=== PATIENT | female | born 1965 | race Caucasian/White ===

== ENCOUNTER 2018-09-02 12:36 | Day surgery (SDC) | payer BC ==
[~2018-09-02] VITALS: Ht 167.6 cm; Wt 108.7 kg
[~2018-09-02 12:36] MED LIST: ATEN25TA PO; LISI-170 PO
[2018-09-02] MEDS ORDERED: LACTATED RINGERS 1,000 ML IV SCH (12:47)
[2018-09-02] MEDS ORDERED: ONDANSETRON 2MG/ML, 2ML IVPush ONE (13:30)
[2018-09-02 13:36] LABS: ANION GAP 6 mmol/L (5-15); CALCIUM 8.9 mg/dL (8.5-10.1); CHLORIDE 108 mmol/L (98-107)
[2018-09-02 13:40] LABS: ALANINE AMINOTRANSFERASE 40 U/L (12-78); ALKALINE PHOSPHATASE 107 U/L (45-117); BILIRUBIN,TOTAL 1.1 mg/dL (0.2-1.0); CREATININE 0.61 mg/dL (0.55-1.02); TOTAL PROTEIN 7.8 g/dL (6.4-8.2)
[2018-09-02] MEDS ORDERED: FENTANYL PF 250 MCG/5ML ONE (15:23)
[2018-09-02] MEDS ORDERED: MIDAZOLAM 1 MG/ML, 2ML ONE (15:23)
[2018-09-02] MEDS ORDERED: PROPOFOL 100 ML ONE (15:26)
[2018-09-02] MEDS ORDERED: ROCURONIUM 10 MG/ML,10ML ONE (15:28)
[2018-09-02] MEDS ORDERED: ONDANSETRON ODT 8 MG PO PRN (16:00)
[2018-09-02] MEDS ORDERED: HYDROmorphone 2 MG/ML, 1ML IVPush PRN (16:00)
[2018-09-02] MEDS ORDERED: LORazepam 2 MG/ML, 1ML IVPush PRN (16:00)
[2018-09-02] MEDS ORDERED: OXYcodone 5 MG/5 ML ORAL.SOL UDC PO PRN (16:00)
[2018-09-02] MEDS ORDERED: DIAZEPAM 5 MG/ML, 2ML IVPush PRN (16:00)
[2018-09-02] MEDS ORDERED: ACETAMINOPHEN 325 MG TABLET PO PRN (16:00)
[2018-09-02] MEDS ORDERED: ONDANSETRON 2MG/ML, 2ML IV PRN ×2 (16:00→19:30)
[2018-09-02] MEDS ORDERED: FENTANYL PF 100 MCG/2ML IV PRN (16:00)
[2018-09-02] MEDS ORDERED: PROMETHAZINE 25 MG/ML, 1ML IV PRN (16:00)
[2018-09-02] MEDS ORDERED: OMNIPAQUE 350 MG/ML, 50 ML BOTTLE IV ONE (16:17)
[2018-09-02] MEDS ORDERED: ONDANSETRON 2MG/ML, 2ML ONE (16:52)
[2018-09-02] MEDS ORDERED: DEXAMETHASONE 4 MG/ML, 1ML ONE (16:52)
[2018-09-02] MEDS ORDERED: CEFAZOLIN 1,000 MG ONE (16:52)
[2018-09-02] MEDS ORDERED: PROPOFOL 10 MG/ML, 20ML ONE (16:52)
[2018-09-02] MEDS ORDERED: LABETALOL 5MG/ML, 20ML IV PRN (17:30)
[2018-09-02] MEDS ORDERED: hydrALAzine 20 MG/ML, 1ML ONE (17:35)
[2018-09-02] MEDS ORDERED: ACETAMINOPHEN 650 MG/20.3 ML UDC ONE (17:35)
[2018-09-02] MEDS: hydrALAzine 20 MG/ML, 1ML IV PRN ×2 (17:37→18:09)
[2018-09-02] MEDS ORDERED: LABETALOL 5 MG/ML SYRINGE IV PRN (17:51)
[2018-09-02] MEDS ORDERED: OXYcodone 5 MG/5 ML ORAL.SOL UDC ONE (18:16)
[2018-09-02] MEDS ORDERED: FENTANYL PF 100 MCG/2ML ONE (18:16)
[2018-09-02] MEDS ORDERED: MORPHINE SULFATE 4 MG/ML, 1ML IV PRN (19:30)
[2018-09-02 20:00] VITALS: BP 144/82
== END 2018-09-02 20:55 | disposition home or self-care (01) ==
LOC: OUT 12:36 → 4NOR 18:49 → OUT 20:55
PROVIDERS: ATTEND Urology
DX: N20.2 Calculus of kidney with calculus of ureter (principal); I10 Essential (primary) hypertension; Z88.5 Allergy status to narcotic agent; Z88.8 Allergy status to other drugs, medicaments and biological substances
CPT/HCPCS: 36415; 52356; 74420; 80053; C1726; C1758; C1769; C2617; J0360; J0690; J1100; J2250; J2405; J2704; J3010; J7120; Q9967; G0378

== ENCOUNTER 2018-09-04 17:43 | Emergency (ER) | payer BC ==
[~2018-09-04] VITALS: Ht 167.6 cm; Wt 109.9 kg
[2018-09-04 18:14] LABS: BASOPHILS # (AUTO) 0.02 x10^3/uL (0-0.1); BASOPHILS % (AUTO) 0 % (0-1); EOSINOPHILS # (AUTO) 0.13 x10^3/uL (0-0.4); EOSINOPHILS % (AUTO) 2 % (1-7); LYMPHOCYTES # (AUTO) 2.56 x10^3/uL (1-3.4); LYMPHOCYTES % (AUTO) 30 % (22-44); MD NO; MEAN CORPUSCULAR HEMOGLOBIN 29.5 pg (27.0-34.8); MEAN CORPUSCULAR HGB CONC 33.9 g/dL (32.4-35.8); MEAN CORPUSCULAR VOLUME 87.1 fL (80-100); MEAN PLATELET VOLUME 8.2 fL (7.4-10.4); MONOCYTES # (AUTO) 0.52 x10^3/uL (0.2-0.8); MONOCYTES % (AUTO) 6 % (2-9); NEUTROPHILS # (AUTO) 5.43 x10^3/uL (1.8-6.8); NEUTROPHILS % (AUTO) 63 % (42-75); PLATELET COUNT 270 x10^3/uL (130-400); RED BLOOD COUNT 4.72 x10^6/uL (3.82-5.3); RED CELL DISTRIBUTION WIDTH 13.7 % (9.6-15.2)
[2018-09-04] MEDS ORDERED: KETOROLAC 30 MG/1 ML ONE (18:14)
[2018-09-04] MEDS ORDERED: ONDANSETRON ODT 4 MG ONE (18:14)
[2018-09-04 18:24] LABS: ALBUMIN 4.2 g/dL (3.4-5.0); ANION GAP 5 mmol/L (5-15); CALCIUM 8.7 mg/dL (8.5-10.1); CHLORIDE 109 mmol/L (98-107)
[2018-09-04 18:28] LABS: ALANINE AMINOTRANSFERASE 34 U/L (12-78); ALKALINE PHOSPHATASE 113 U/L (45-117); BILIRUBIN,TOTAL 0.6 mg/dL (0.2-1.0); CREATININE 0.86 mg/dL (0.55-1.02); TOTAL PROTEIN 7.9 g/dL (6.4-8.2)
--- NOTE | 2018-09-04 18:28 | NUR ---
Patient to XR. Pt states she had a procedure earlier today to remove kidney stones and presents to the ED with c/o severe right flank pain
[2018-09-04 18:29] LABS: MICROSCOPIC INDICATED
[2018-09-04] MEDS ORDERED: ONDANSETRON ODT 4 MG PO ONE (18:30)
[2018-09-04] MEDS ORDERED: KETOROLAC 60 MG/2 ML IM ONE (18:30)
[2018-09-04 18:51] LABS: CULTURE INDICATED? YES
[2018-09-04] MEDS ORDERED: HYDROmorphone 1 MG/ML, 1ML INJ IM ONE (19:00)
[2018-09-04] MEDS ORDERED: HYDROmorphone 1 MG/ML, 1ML VIAL ONE (19:01)
--- NOTE | 2018-09-04 19:15 | NUR ---
REPORT RECEIVED FROM JIM GALLEGO AT BEDSIDE. PT A&O, RESPS EVEN AND UNLABORED. EDMD AWARE OF ELEVATED BP, AWAITING EFFECTS OF DILAUID AND BP RECHECK AT THIS TIME. BP AND SPO2 MONITORS IN PLACE .
--- NOTE | 2018-09-04 19:16 | NUR ---
REPORT GIVEN TO JIM COOPER.
--- NOTE | 2018-09-04 19:45 | NUR ---
PT REPORTS PAIN LEVEL NOW TOLERABLE AT 5/10. PT A&O, RESPS EVEN AND UNLABORED. NADN.
--- NOTE | 2018-09-04 19:56 | NUR ---
EMILIE MONDRAGON AT BEDSIDE FOR REASSESSMENT.
[2018-09-04] MEDS ORDERED: HYDROcodone/APAP 5/325 TABLET PO ONE (20:00)
[2018-09-04] MEDS ORDERED: HYDROcodone/APAP 5/325 TABLET ONE (20:17)
[2018-09-04 20:22] VITALS: BP 171/79
--- NOTE | 2018-09-04 20:37 | NUR ---
PT A&O, RESPS EVEN AND UNLABORED. [facility]CO ADMIN PER MD ORDER PT HAS A LONG CAR RIDE HOME. PT GIVEN DC INSTRUCTIONTS AND SCRIPT, EDUCATED REGARDING RX FOR ZOFRAN AND IBUPROFEN. PT EDUCATED NOT TO DRIVE TONIGHT D/T MEDS GIVEN. PT AMB TO DC DESK WITH STEADY GAIT, NADN AT DC.
== END 2018-09-04 20:38 | disposition home or self-care (01) ==
LOC: ED 19:13
DX: N20.2 Calculus of kidney with calculus of ureter (principal)
CPT/HCPCS: 36415; 74018; 80053; 81001; 85025; 87086; 96372; 99284; J1170; J1885; Q0162

== ENCOUNTER 2018-09-05 21:43 | Inpatient (IN) | payer BC ==
[~2018-09-05] VITALS: Ht 167.6 cm; Wt 109.4 kg
--- NOTE | 2018-09-05 22:02 | NUR ---
LOU. REPORT RECEIVED FROM EMS. PT TRANSFFERED FROM [facility]. PT TOOK OUT KIDNEY STONES HERE ON SAT. PT HAD CT SCAN AT [facility] AND IT SHOWS PT STILL HAS TWO KIDNEY STONES LEFT. PT C/O RIGHT SIDED ABD/FLANK PAIN WITH NAUSEA. PT'S AOX4. RESPS EVEN AND UNLABORED. BP/SPO2 MONITORS IN PLACE. EDMD AT BEDSIDE TO ASSESS AT THIS TIME.
[2018-09-05] MEDS ORDERED: ONDANSETRON 2MG/ML, 2ML ONE (22:08)
--- NOTE | 2018-09-05 22:14 | NUR ---
PT MEDICATED PER EMAR FOR NAUSEA. PT TOLERATED WELL. PT'S AOX4. RESPS EVEN AND UNLABORED.
--- NOTE | 2018-09-05 22:17 | NUR ---
PT PROVIDED WATER. EDMD NOTIFIED.
[2018-09-05] MEDS ORDERED: ONDANSETRON 2MG/ML, 2ML IVPush ONE (22:30)
[2018-09-05] MEDS ORDERED: HYDROmorphone 1 MG/ML, 1ML VIAL IVPush PRN (22:30)
--- NOTE | 2018-09-05 22:46 | NUR ---
PT PROVIDED SOME CRACKERS/PUDDING AT THIS TIME. PT IS NPO AFTER 0AM. EDMD NOTIFIED AND PT EDUCATED ABOUT NPO.
--- NOTE | 2018-09-05 22:53 | NUR ---
REPORT GIVEN TO SONIA FERNANDEZ . ALL QUESTIONS ANSWERED.
[2018-09-05] MEDS ORDERED: POLYETHYLENE GLYCOL 17 GM PACKET PO PRN (23:00)
[2018-09-05] MEDS ORDERED: ACETAMINOPHEN 325 MG TABLET PO PRN (23:00)
[2018-09-05] MEDS ORDERED: KETOROLAC 30 MG/1 ML IV PRN (23:00)
[2018-09-05] MEDS ORDERED: BISACODYL 10 MG SUPP PR PRN (23:00)
[2018-09-05] MEDS ORDERED: ENALAPRILAT 1.25 MG/ML, 2ML IVPush PRN (23:00)
[2018-09-05] MEDS ORDERED: LABETALOL 5 MG/ML SYRINGE IVPush PRN (23:00)
[2018-09-06] MEDS: HYDROmorphone 2 MG/ML, 1ML IVPush PRN ×3 (00:41→22:16)
[2018-09-06] MEDS: LACTATED RINGERS 1,000 ML IV SCH ×3 (00:42→22:00)
[2018-09-06 01:36] VITALS: BP 146/77
[2018-09-06 04:54] LABS: BASOPHILS # (AUTO) 0.02 x10^3/uL (0-0.1); BASOPHILS % (AUTO) 0 % (0-1); EOSINOPHILS # (AUTO) 0.19 x10^3/uL (0-0.4); EOSINOPHILS % (AUTO) 3 % (1-7); LYMPHOCYTES # (AUTO) 1.85 x10^3/uL (1-3.4); LYMPHOCYTES % (AUTO) 32 % (22-44); MD NO; MEAN CORPUSCULAR HEMOGLOBIN 29.5 pg (27.0-34.8); MEAN CORPUSCULAR VOLUME 86.8 fL (80-100); MEAN PLATELET VOLUME 7.8 fL (7.4-10.4); MONOCYTES # (AUTO) 0.36 x10^3/uL (0.2-0.8); MONOCYTES % (AUTO) 6 % (2-9); NEUTROPHILS # (AUTO) 3.33 x10^3/uL (1.8-6.8); NEUTROPHILS % (AUTO) 58 % (42-75); PLATELET COUNT 206 x10^3/uL (130-400); RED BLOOD COUNT 4.05 x10^6/uL (3.82-5.3); RED CELL DISTRIBUTION WIDTH 13.5 % (9.6-15.2)
[2018-09-06 04:57] LABS: ANION GAP 5 mmol/L (5-15); CALCIUM 8.4 mg/dL (8.5-10.1); CHLORIDE 108 mmol/L (98-107); CREATININE 0.71 mg/dL (0.55-1.02)
[2018-09-06 07:27] VITALS: BP 137/67
[2018-09-06] MEDS: LISINOPRIL 20 MG TABLET PO SCH (09:00)
[2018-09-06] MEDS: SENNA/DOCUSATE TABLET PO SCH (09:00)
[2018-09-06] MEDS: ATENOLOL 25 MG TABLET PO SCH (09:13)
[2018-09-06 10:20] LABS: MICROSCOPIC AUTO
[2018-09-06 10:26] LABS: CULTURE INDICATED? YES
[2018-09-06] MEDS: TAMSULOSIN 0.4 MG CAP.ER.24H PO SCH (13:38)
[2018-09-06 14:08] VITALS: BP 130/86
[2018-09-06] MEDS: ONDANSETRON 2MG/ML, 2ML IVPush PRN ×2 (15:59→22:13)
[2018-09-06] MEDS ORDERED: LEVOFLOXACIN/PMX 750MG/150ML 150 ML IV SCH (19:00)
[2018-09-06 20:35] VITALS: BP 125/65
[2018-09-07] MEDS: LACTATED RINGERS 1,000 ML IV SCH (00:32)
[2018-09-07 00:42] VITALS: BP 129/76
[2018-09-07 05:29] LABS: ALBUMIN 3.1 g/dL (3.4-5.0); ANION GAP 5 mmol/L (5-15); CALCIUM 8.3 mg/dL (8.5-10.1); CHLORIDE 111 mmol/L (98-107)
[2018-09-07 05:34] LABS: ALANINE AMINOTRANSFERASE 32 U/L (12-78); ALKALINE PHOSPHATASE 85 U/L (45-117); BILIRUBIN,TOTAL 0.8 mg/dL (0.2-1.0); CREATININE 0.77 mg/dL (0.55-1.02); TOTAL PROTEIN 6.3 g/dL (6.4-8.2)
[2018-09-07 07:45] VITALS: BP 125/74
[2018-09-07 07:56] LABS: HCG UR SG 1.011 (1.003-1.030)
[2018-09-07] MEDS ORDERED: MIDAZOLAM 1 MG/ML, 2ML ONE (09:00)
[2018-09-07] MEDS ORDERED: FENTANYL PF 250 MCG/5ML ONE (09:01)
[2018-09-07] MEDS ORDERED: SUCCINYLCHOLINE 20 MG/ML, 10ML ONE (09:29)
[2018-09-07] MEDS ORDERED: DEXAMETHASONE 4 MG/ML, 1ML ONE (09:29)
[2018-09-07] MEDS ORDERED: PROPOFOL 10 MG/ML, 20ML ONE (09:29)
[2018-09-07] MEDS ORDERED: OMNIPAQUE 350 MG/ML, 50 ML BOTTLE IV ONE (09:49)
[2018-09-07] MEDS ORDERED: hydrALAzine 20 MG/ML, 1ML IV PRN (10:00)
[2018-09-07] MEDS ORDERED: DIAZEPAM 5 MG/ML, 2ML IVPush PRN (10:00)
[2018-09-07] MEDS ORDERED: HYDROmorphone 2 MG/ML, 1ML IVPush PRN (10:00)
[2018-09-07] MEDS ORDERED: MEPERIDINE/PF 25MG/0.5ML IVPush PRN (10:00)
[2018-09-07] MEDS ORDERED: ALBUTEROL SULFATE 2.5 MG/3 ML NPPB PRN (10:00)
[2018-09-07] MEDS ORDERED: OXYcodone 5 MG/5 ML ORAL.SOL UDC PO PRN (10:00)
[2018-09-07] MEDS ORDERED: LABETALOL 5MG/ML, 20ML IV PRN (10:00)
[2018-09-07] MEDS ORDERED: PROMETHAZINE 25 MG/ML, 1ML IV PRN (10:00)
[2018-09-07] MEDS ORDERED: ACETAMINOPHEN 325 MG TABLET PO PRN (10:00)
[2018-09-07] MEDS ORDERED: FENTANYL PF 100 MCG/2ML IV PRN (10:00)
[2018-09-07] MEDS ORDERED: KETOROLAC 30 MG/1 ML IV PRN (10:00)
[2018-09-07] MEDS ORDERED: OXYcodone 5 MG/5 ML ORAL.SOL UDC ONE (10:46)
[2018-09-07] MEDS ORDERED: OMNIPAQUE 350 MG/ML, 50 ML BOTTLE ONE (10:50)
[2018-09-07] MEDS ORDERED: KETOROLAC 30 MG/1 ML ONE (11:07)
[2018-09-07] MEDS: ATENOLOL 25 MG TABLET PO SCH (12:27)
[2018-09-07] MEDS: LISINOPRIL 20 MG TABLET PO SCH (12:27)
[2018-09-07] MEDS: SENNA/DOCUSATE TABLET PO SCH (12:27)
[2018-09-07] MEDS: TAMSULOSIN 0.4 MG CAP.ER.24H PO SCH (12:27)
[2018-09-07] MEDS ORDERED: LEVO500T47 PO (13:06)
[2018-09-07] MEDS ORDERED: ACET325T14 PO (13:06)
[2018-09-07 13:52] VITALS: BP 134/49
[2018-09-07] MEDS ORDERED: ONDA4TAB7 PO (14:22)
== END 2018-09-07 17:05 | disposition home or self-care (01) | DRG 690 ==
LOC: ED 22:18 → EDIP 22:19 → 4NOR 23:05
PROVIDERS: ADMIT Family Medicine; ATTEND Family Medicine
PROC: BT1D1ZZ Fluoroscopy of Right Kidney, Ureter and Bladder using Low Osmolar Contrast (ICD-10-PCS; 2018-09-07)
PROC: 0T7D8ZZ Dilation of Urethra, Via Natural or Artificial Opening Endoscopic (ICD-10-PCS; principal; 2018-09-07 09:30)
DX: N13.6 Pyonephrosis (principal); E66.9 Obesity, unspecified; I10 Essential (primary) hypertension; K59.00 Constipation, unspecified; Z68.39 Body mass index [BMI] 39.0-39.9, adult; Z82.49 Family history of ischemic heart disease and other diseases of the circulatory system; Z87.442 Personal history of urinary calculi
CPT/HCPCS: 36415; 74420; 80048; 80053; 81001; 81025; 85025; 87086; 93005; 96374; 99285; G0378; J1100; J1170; J1885; J1956; J2250; J2405; J2704; J3010; Q9967; C1758; C1769; J0330; J7120